=== PATIENT | male | born 1995 | race African-American/Black ===

== ENCOUNTER 2022-10-14 09:42 | Emergency (ER) | payer BC ==
[2022-10-14 10:16] VITALS: BP 112/67; PULSE 84; RESP 16; TEMP 98.7; BMI 33.5
[2022-10-14] MEDS ORDERED: ACETAMINOPHEN 325 MG TABLET (FP) PO ONE (11:43)
[2022-10-14] MEDS ORDERED: ACETAMINOPHEN 500 MG TABLET (FP) ONE (11:46)
== END 2022-10-14 13:13 | disposition home or self-care (01) ==
LOC: JERFT 09:42
DX: R51.9 Headache, unspecified (principal)
CPT/HCPCS: 70450-TC; 99284-25